=== PATIENT | male | born 1990 | race African-American/Black ===

== ENCOUNTER 2017-03-27 01:14 | Emergency (ER) | payer OTHER ==
[~2017-03-27] VITALS: Ht 160 cm; Wt 80.0 kg
[~2017-03-27 01:14] MED LIST: PERM5CRE4 TOP; Z.0.NO CURRENT MEDS
[2017-03-27 01:29] VITALS: BP 138/74; PULSE 76; RESP 19; TEMP 98.9; O2SAT 98
[2017-03-27] MEDS ORDERED: ROBA750T PO (01:57)
[2017-03-27] MEDS ORDERED: DICL75TA PO (01:57)
[2017-03-27] MEDS ORDERED: CYCLOBENZAPRINE HCL 10 MG TAB PO ONE (02:00)
[2017-03-27] MEDS ORDERED: IBUPROFEN 800 MG TAB PO ONE (02:00)
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
== END 2017-03-27 02:36 | disposition home or self-care (01) ==
LOC: NEPD 01:14
DX: M54.2 Cervicalgia (principal); S50.812A Abrasion of left forearm, initial encounter; V49.9XXA Car occupant (driver) (passenger) injured in unspecified traffic accident, initial encounter
CPT/HCPCS: 72040; 99284